=== PATIENT | female | born 1970 | race Hispanic/Latino ===

== ENCOUNTER 2022-10-31 01:04 | Inpatient (IN) | payer SELFPAY ==
[2022-10-31 02:56] VITALS: BMI 41.0
[2022-10-31 03:55] LABS: #Monocytes 0.6 thou/uL (0.11-0.59); #Neutrophils 6.2 thou/uL (1.40-6.50); %Basophils 0.3 % (0.0-1.0); %Eosinophils 0.5 % (0.0-10.0); %Lymphocytes 12.1 % (21.0-51.0); %Monocytes 7.4 % (0.0-10.0); %Neutrophils 79.4 % (42.0-75.0); Hemoglobin 11.1 g/dL (12.0-16.0); Mean Corpuscular HGB CONC 30.5 g/dL (32.0-36.0); Mean Corpuscular Hemoglobin 22.4 pg (27.0-31.0); Mean Corpuscular Volume 73.4 fl (78.0-98.0); Platelet Count 173 10x3/uL (130-400); RBC Distribution Width 23.3 % (11.5-14.5); Red Blood Cell (RBC) Count 4.96 mill/uL (4.20-5.40); White Blood Cell (WBC) Count 7.7 10x3/uL (4.8-10.8)
[2022-10-31 04:15] LABS: Lactic Acid 1.2 mmol/L (0.5-2.2)
[2022-10-31 04:16] LABS: Anion Gap 11 mmol/L (10-20); BUN (Urea Nitrogen) 11 mg/dL (9.8-20.1); Calc. Creatinine Clearance 164 mL/min (70-130); Calcium 8.4 mg/dL (7.8-10.44); Carbon Dioxide 22 mmol/L (22-29); Chloride 107 mmol/L (98-107); Estimated GFR 107; Glucose 119 mg/dL (70-105); Potassium 3.5 mmol/L (3.5-5.1); Sodium 136 mmol/L (136-145)
[2022-10-31] MEDS: Morphine 4 MG/ML VIAL SLOW IVP PRN ×2 (05:33→21:19)
[2022-10-31] MEDS ORDERED: Heparin 25,000 units/D5W 500 ML IVPB SCH (06:00)
[2022-10-31] MEDS ORDERED: Ondansetron ODT 4 MG TAB PO PRN (06:06)
[2022-10-31] MEDS ORDERED: Acetaminophen 650 MG Suppository PR PRN (06:06)
[2022-10-31] MEDS ORDERED: Ondansetron PF 4 MG/2 ML Vial IVP PRN (06:06)
[2022-10-31] MEDS ORDERED: Acetaminophen 325 MG TAB PO PRN (06:06)
[2022-10-31] MEDS ORDERED: Heparin 10,000 UNITS/ 10 ML VIAL SLOW IVP SCH (06:15)
[2022-10-31 06:20] LABS: Hemoglobin 10.8 g/dL (12.0-16.0); Platelet Count 165 10x3/uL (130-400)
[2022-10-31 06:53] LABS: INR-International Normal Ratio 1.1; PTT 31.8 sec (22.9-36.1); Prothrombin Time 14.8 sec (12.0-14.7)
[2022-10-31 08:36] LABS: Hemoglobin A1c 6.1 % (4.0-6.0)
[2022-10-31] MEDS ORDERED: Iopamidol 370 76% 100 ML VIAL ONE (13:33)
[2022-10-31] MEDS: Dextrose 5 % And 0.9 % NaCl 1,000 ML IV SCH ×2 (14:09→21:19)
[2022-11-01 07:00] LABS: #Eosinphils 0.1 thou/uL (0.0-0.7); #Monocytes 0.5 thou/uL (0.11-0.59); #Neutrophils 3.6 thou/uL (1.40-6.50); %Basophils 0.4 % (0.0-1.0); %Eosinophils 2.7 % (0.0-10.0); %Lymphocytes 17.6 % (21.0-51.0); %Monocytes 9.3 % (0.0-10.0); %Neutrophils 69.8 % (42.0-75.0); Hemoglobin 11.1 g/dL (12.0-16.0); Mean Corpuscular HGB CONC 29.9 g/dL (32.0-36.0); Mean Corpuscular Hemoglobin 21.8 pg (27.0-31.0); Mean Corpuscular Volume 72.9 fl (78.0-98.0); Platelet Count 170 10x3/uL (130-400); RBC Distribution Width 23.4 % (11.5-14.5); Red Blood Cell (RBC) Count 5.09 mill/uL (4.20-5.40); White Blood Cell (WBC) Count 5.2 10x3/uL (4.8-10.8)
[2022-11-01 07:28] LABS: Anion Gap 10 mmol/L (10-20); BUN (Urea Nitrogen) 7 mg/dL (9.8-20.1); Calc. Creatinine Clearance 170 mL/min (70-130); Calcium 8.6 mg/dL (7.8-10.44); Carbon Dioxide 25 mmol/L (22-29); Chloride 106 mmol/L (98-107); Estimated GFR 108; Glucose 105 mg/dL (70-105); Potassium 3.4 mmol/L (3.5-5.1); Sodium 138 mmol/L (136-145)
[2022-11-01 07:31] LABS: Anisocytosis SLIGHT = 6-15 cells HPF (0-5); CellaVision Operator ID LAB.MJL; Elliptocytes SLIGHT = 2-5 cells HPF (0-1); Hypochromia SLIGHT = 6-15 cells HPF (0-5); Microcytosis SLIGHT = 6-15 cells HPF (0-5); Ovalocytes SLIGHT = 2-5 cells HPF (0-1); Platelet Adequacy Comment Platelets Normal; Polychromasia SLIGHT = 2-3 cells HPF (0-2)
[2022-11-01] MEDS ORDERED: Potassium Chloride 20 MEQ TAB PO SCH (09:30)
[2022-11-01 11:29] LABS: BHCG - Serum Negative (NEGATIVE); Pregs Control Background? CLEAR/WHITE (CLR/WHITE); Pregs Control Bar Appear? YES (CONTROL BAR)
[2022-11-01] MEDS ORDERED: Levofloxacin 500 mg/D5W 100 ml Premix Bag ONE (11:47)
[2022-11-01] MEDS ORDERED: Scopolamine 1.5 mg/72 hour Patch ONE (11:48)
[2022-11-01] MEDS ORDERED: Ketorolac Tromethamine 30 MG/ML VIAL ONE (11:48)
[2022-11-01] MEDS ORDERED: Bupivacaine HCl 0.5%/Epinephrine 1:200,000/PF 30 ml Vial ONE (11:57)
[2022-11-01] MEDS ORDERED: Glucagon 1 MG/ML KIT ONE (11:57)
[2022-11-01] MEDS ORDERED: Iopamidol 0 ML ONE (11:57)
[2022-11-01] MEDS ORDERED: Lidocaine 4% Topical Sol 50 ML BOT ONE (11:58)
[2022-11-01] MEDS ORDERED: Fentanyl 250 MCG/5 ML VIAL ONE (11:58)
[2022-11-01] MEDS ORDERED: SUGAMMADEX SODIUM 200 MG/2 ML VIAL ONE (11:58)
[2022-11-01] MEDS ORDERED: PROPOFOL 200 MG/20 ML VIAL ONE (12:16)
[2022-11-01] MEDS ORDERED: Rocuronium Bromide 10 MG/ML (10ML VIAL) ONE (12:16)
[2022-11-01] MEDS ORDERED: Lidocaine 1% PF 5 ML VIAL ONE (12:16)
[2022-11-01] MEDS ORDERED: Iopamidol 15 ML ONE (12:29)
[2022-11-01] MEDS ORDERED: Albuterol HFA (OR) 200 PUFF INH ONE (13:13)
[2022-11-01] MEDS ORDERED: Acetaminophen 500 MG TAB PO PRN (13:21)
[2022-11-01] MEDS ORDERED: Ibuprofen 600 MG TAB PO PRN (13:21)
[2022-11-01] MEDS ORDERED: traMADol HCl 50 MG TAB PO PRN (13:21)
[2022-11-01] MEDS ORDERED: hydrALAZINE 20 MG/ML VIAL ONE (13:32)
[2022-11-01] MEDS ORDERED: fentaNYL 50 mcg/mL 1 mL Vial ONE (13:32)
[2022-11-01] MEDS ORDERED: Acetaminophen 500 MG TAB PO SCH (13:45)
[2022-11-01 17:26] VITALS: BP 144/80; TEMP 97.8
== END 2022-11-01 18:49 | disposition home or self-care (01) | DRG 417 ==
LOC: T4-B 02:35
PROVIDERS: ADMIT Student in an Organized Health Care Education/Training Program; ATTEND Internal Medicine
PROC: 0FT44ZZ Resection of Gallbladder, Percutaneous Endoscopic Approach (ICD-10-PCS; principal; 2022-11-01)
DX: K80.12 Calculus of gallbladder with acute and chronic cholecystitis without obstruction (principal); K55.069 Acute infarction of intestine, part and extent unspecified; Z68.41 Body mass index [BMI] 40.0-44.9, adult; K75.81 Nonalcoholic steatohepatitis (NASH); N83.209 Unspecified ovarian cyst, unspecified side; E66.01 Morbid (severe) obesity due to excess calories; D21.9 Benign neoplasm of connective and other soft tissue, unspecified; Z79.899 Other long term (current) drug therapy; K63.89 Other specified diseases of intestine; K42.9 Umbilical hernia without obstruction or gangrene
CPT/HCPCS: 36415; 74174; 76705; 80048; 83036; 83605; 83735; 84703; 85025; 85610; 85730; 88304; C1889; J0360; J1611; J1644; J1885; J1956; J2270; J2704; J3010; J7042; Q9967